=== PATIENT | male | born 1965 | race Caucasian/White ===

== ENCOUNTER 2021-04-24 04:51 | Inpatient (IN) ==
[2021-04-24] MEDS ORDERED: *HR* Heparin 5,000 UNIT/ML VIAL IVP ONE (05:19)
[2021-04-24] MEDS ORDERED: Aspirin 325 MG TABLET PO ONE (05:19)
[2021-04-24] MEDS ORDERED: *HR* Ticagrelor 90 MG TABLET PO ONE (05:19)
[2021-04-24] MEDS ORDERED: 0.9 % Sodium Chloride 1,000 ML ONE (05:24)
[2021-04-24] MEDS ORDERED: Morphine Sulfate 2 MG/ML SYRINGE IVP ONE (05:34)
[2021-04-24] MEDS ORDERED: Nitroglycerin 1,000 MCG/5 ML VIAL IV ONE (05:38)
[2021-04-24] MEDS ORDERED: Heparin 1,000 UNITS/500 mL 500 ML ONE ×2 (05:38→06:42)
[2021-04-24] MEDS ORDERED: *HR* Heparin 10,000 UNIT/10 ML VIAL ONE (05:38)
[2021-04-24] MEDS ORDERED: 0.9 % Sodium Chloride 2,000 ML ONE (05:38)
[2021-04-24] MEDS ORDERED: ISOVUE-370 200 ML INFUS..BTL ONE ×2 (05:38→06:15)
[2021-04-24] MEDS ORDERED: Ondansetron 4 MG/2 ML VIAL IVP ONE (05:42)
[2021-04-24 05:59] LABS: Basophils # 0.1 K/mcL (0.0-0.2); Basophils % 0.6 %; Eosinophils # 0.1 K/mcL (0.0-0.6); Eosinophils % 0.5 %; Hematocrit 46.6 % (37.5-50.1); Hemoglobin 16.1 g/dL (12.9-16.9); Immature Granulocytes % 0.5 % (0-4); Lymphocytes # 4.1 K/mcL (0.6-4.6); Lymphocytes % 22.8 %; Mean Corpuscular HGB Conc 34.5 g/dL (31.6-35.5); Mean Corpuscular Hemoglobin 30.3 pg (28.0-33.3); Mean Corpuscular Volume 87.8 fL (83.0-100.0); Mean Platelet Volume 11.4 fL (9.4-12.4); Monocytes # 0.8 K/mcL (0.0-1.3); Monocytes % 4.3 %; Neutrophils # 12.7 K/mcL (1.6-8.9); Platelet Count 241 K/mcL (140-400); Red Blood Count 5.31 M/mcL (4.19-5.50); Red Cell Distribution Width 14.4 % (11.5-14.5); Segmented Neutrophils % 71.3 %; White Blood Count 17.8 K/mcL (4.3-11.1)
[2021-04-24 06:03] LABS: Troponin I 0.85 ng/mL (< 0.04)
[2021-04-24] MEDS ORDERED: *HR* Midazolam HCl 2 MG/2 ML VIAL ONE (06:03)
[2021-04-24] MEDS ORDERED: *HR* FentaNYL (PF) 100 MCG/2 ML VIAL ONE (06:03)
[2021-04-24] MEDS ORDERED: *HR* Atropine Sulfate 1 MG/10 ML SYRINGE ONE (06:22)
[2021-04-24 06:24] LABS: Alanine Aminotransferase 16 Units/L (7-52); Albumin 4.7 g/dL (3.5-5.7); Alkaline Phosphatase 64 Units/L (34-104); Aspartate Amino Transferase 26 Units/L (13-39); BUN/Creatinine Ratio 17 (6-26); Bilirubin,Direct 0.2 mg/dL (0.0-0.2); Bilirubin,Indirect 0.8 mg/dL (0.0-1.0); Blood Urea Nitrogen 20 mg/dL (6-20); Calcium 10.1 mg/dL (8.6-10.3); Carbon Dioxide 24 mEq/L (23-29); Chloride 106 mEq/L (98-107); Globulin 4.5 g/dL (2.4-3.5); Glucose 114 mg/dL (70-105); Lipase 17 Units/L (11-82); Osmolality,Calculated 287 (280-300); Potassium 3.8 mEq/L (3.5-5.1); Sodium 137 mEq/L (136-145); Total Protein 9.2 g/dL (6.4-8.9); eGFR For African Americans > 60 (> 60); eGFR For Non-African Americans > 60 (> 60)
[2021-04-24] MEDS ORDERED: Nitroglycerin Spray 4.9 GM BOTTLE ONE (06:46)
[2021-04-24] MEDS ORDERED: Perflutren Lipid Microsphere 1.3 ML in 0.9 % Sodium Chloride 8.7 ML IVP PRN (07:10)
[2021-04-24] MEDS ORDERED: 0.9 % Sodium Chloride 1,000 ML IVC SCH (07:15)
[2021-04-24] MEDS: lisinopriL 10 MG TABLET PO SCH (08:31)
[2021-04-24] MEDS: carvediloL 6.25 MG TABLET PO SCH ×2 (08:31→17:41)
[2021-04-24] MEDS ORDERED: Furosemide 20 MG/2 ML VIAL IVP ONE (09:31)
[2021-04-24] MEDS ORDERED: Albuterol 2.5 MG/3 ML NEBULIZER IH PRN (10:05)
[2021-04-24] MEDS: 0.9 % Sodium Chloride 1,000 ML IVC SCH (10:15)
[2021-04-24] MEDS: Nicotine 21 MG PATCH.TD24 TD SCH (11:36)
[2021-04-24] MEDS: *HR* Heparin 5,000 UNIT/ML VIAL SQ SCH (17:43)
[2021-04-24] MEDS: *HR* Ticagrelor 90 MG TABLET PO SCH (20:18)
[2021-04-25] MEDS: *HR* Heparin 5,000 UNIT/ML VIAL SQ SCH ×2 (05:10→18:07)
[2021-04-25] MEDS: 0.9 % Sodium Chloride 1,000 ML IVC SCH ×2 (05:10→23:18)
[2021-04-25 05:40] LABS: Basophils # 0.1 K/mcL (0.0-0.2); Basophils % 0.5 %; Eosinophils # 0.1 K/mcL (0.0-0.6); Eosinophils % 1.2 %; Hematocrit 39.7 % (37.5-50.1); Immature Granulocytes % 0.3 % (0-4); Lymphocytes # 3.1 K/mcL (0.6-4.6); Lymphocytes % 27.1 %; Mean Corpuscular HGB Conc 34.5 g/dL (31.6-35.5); Mean Corpuscular Volume 87.1 fL (83.0-100.0); Mean Platelet Volume 11.8 fL (9.4-12.4); Monocytes # 0.6 K/mcL (0.0-1.3); Monocytes % 5.3 %; Neutrophils # 7.4 K/mcL (1.6-8.9); Platelet Count 177 K/mcL (140-400); Red Blood Count 4.56 M/mcL (4.19-5.50); Red Cell Distribution Width 14.6 % (11.5-14.5); Segmented Neutrophils % 65.6 %; White Blood Count 11.3 K/mcL (4.3-11.1)
[2021-04-25 05:44] LABS: Hemoglobin 13.7 g/dL (12.9-16.9)
[2021-04-25 05:58] LABS: BUN/Creatinine Ratio 16 (6-26); Blood Urea Nitrogen 18 mg/dL (6-20); Carbon Dioxide 22 mEq/L (23-29); Chloride 107 mEq/L (98-107); Glucose 96 mg/dL (70-105); Osmolality,Calculated 284 (280-300); Potassium 3.8 mEq/L (3.5-5.1); Sodium 136 mEq/L (136-145); eGFR For African Americans > 60 (> 60); eGFR For Non-African Americans > 60 (> 60)
[2021-04-25 06:04] LABS: Troponin I 67.74 ng/mL (< 0.04)
[2021-04-25] MEDS: lisinopriL 10 MG TABLET PO SCH (07:54)
[2021-04-25] MEDS: Aspirin 81 MG TAB.CHEW PO SCH (07:54)
[2021-04-25] MEDS: *HR* Ticagrelor 90 MG TABLET PO SCH ×2 (07:54→20:20)
[2021-04-25] MEDS: Nicotine 21 MG PATCH.TD24 TD SCH (07:54)
[2021-04-25] MEDS: carvediloL 6.25 MG TABLET PO SCH ×2 (07:54→18:08)
[2021-04-26] MEDS: *HR* Heparin 5,000 UNIT/ML VIAL SQ SCH ×2 (06:21→17:21)
[2021-04-26] MEDS: *HR* Ticagrelor 90 MG TABLET PO SCH ×2 (07:45→19:27)
[2021-04-26] MEDS: Aspirin 81 MG TAB.CHEW PO SCH (07:45)
[2021-04-26] MEDS: carvediloL 6.25 MG TABLET PO SCH ×2 (07:45→17:21)
[2021-04-26] MEDS: lisinopriL 10 MG TABLET PO SCH (07:45)
[2021-04-26] MEDS: Nicotine 21 MG PATCH.TD24 TD SCH (07:45)
[2021-04-26 08:11] LABS: Basophils # 0.1 K/mcL (0.0-0.2); Eosinophils # 0.2 K/mcL (0.0-0.6); Eosinophils % 2.3 %; Hemoglobin 14.2 g/dL (12.9-16.9); Immature Granulocytes % 0.4 % (0-4); Lymphocytes # 2.5 K/mcL (0.6-4.6); Lymphocytes % 30.5 %; Mean Corpuscular HGB Conc 33.8 g/dL (31.6-35.5); Mean Corpuscular Hemoglobin 29.5 pg (28.0-33.3); Mean Corpuscular Volume 87.3 fL (83.0-100.0); Mean Platelet Volume 11.5 fL (9.4-12.4); Monocytes # 0.4 K/mcL (0.0-1.3); Monocytes % 4.7 %; Neutrophils # 5.1 K/mcL (1.6-8.9); Platelet Count 179 K/mcL (140-400); Red Blood Count 4.81 M/mcL (4.19-5.50); Red Cell Distribution Width 14.3 % (11.5-14.5); Segmented Neutrophils % 61.1 %; White Blood Count 8.3 K/mcL (4.3-11.1)
[2021-04-26 08:30] LABS: BUN/Creatinine Ratio 18 (6-26); Blood Urea Nitrogen 20 mg/dL (6-20); Calcium 9.5 mg/dL (8.6-10.3); Carbon Dioxide 23 mEq/L (23-29); Chloride 108 mEq/L (98-107); Glucose 121 mg/dL (70-105); Osmolality,Calculated 286 (280-300); Potassium 3.8 mEq/L (3.5-5.1); Sodium 136 mEq/L (136-145); eGFR For African Americans > 60 (> 60); eGFR For Non-African Americans > 60 (> 60)
[2021-04-26] MEDS: 0.9 % Sodium Chloride 1,000 ML IVC SCH (19:27)
[2021-04-27 01:54] LABS: Basophils # 0.1 K/mcL (0.0-0.2); Eosinophils # 0.3 K/mcL (0.0-0.6); Eosinophils % 3.5 %; Hematocrit 40.1 % (37.5-50.1); Hemoglobin 13.7 g/dL (12.9-16.9); Immature Granulocytes % 0.3 % (0-4); Lymphocytes # 2.8 K/mcL (0.6-4.6); Lymphocytes % 35.2 %; Mean Corpuscular HGB Conc 34.2 g/dL (31.6-35.5); Mean Corpuscular Hemoglobin 29.8 pg (28.0-33.3); Mean Corpuscular Volume 87.2 fL (83.0-100.0); Mean Platelet Volume 11.8 fL (9.4-12.4); Monocytes # 0.4 K/mcL (0.0-1.3); Monocytes % 5.6 %; Neutrophils # 4.3 K/mcL (1.6-8.9); Platelet Count 178 K/mcL (140-400); Red Cell Distribution Width 14.3 % (11.5-14.5); Segmented Neutrophils % 54.4 %; White Blood Count 7.9 K/mcL (4.3-11.1)
[2021-04-27 02:17] LABS: BUN/Creatinine Ratio 19 (6-26); Blood Urea Nitrogen 22 mg/dL (6-20); Calcium 9.3 mg/dL (8.6-10.3); Carbon Dioxide 22 mEq/L (23-29); Chloride 108 mEq/L (98-107); Glucose 140 mg/dL (70-105); Osmolality,Calculated 288 (280-300); Potassium 3.6 mEq/L (3.5-5.1); Sodium 136 mEq/L (136-145); eGFR For African Americans > 60 (> 60); eGFR For Non-African Americans > 60 (> 60)
[2021-04-27] MEDS: *HR* Heparin 5,000 UNIT/ML VIAL SQ SCH ×2 (06:09→10:42)
[2021-04-27] MEDS: *HR* Ticagrelor 90 MG TABLET PO SCH (07:48)
[2021-04-27] MEDS: Aspirin 81 MG TAB.CHEW PO SCH (07:48)
[2021-04-27] MEDS: carvediloL 6.25 MG TABLET PO SCH (07:48)
[2021-04-27] MEDS: lisinopriL 10 MG TABLET PO SCH (07:53)
[2021-04-27] MEDS: Nicotine 21 MG PATCH.TD24 TD SCH (07:53)
[2021-04-27] MEDS ORDERED: lisinopriL 10 MG TABLET PO ONE (08:23)
[2021-04-27] MEDS ORDERED: Nitroglycerin 1,000 MCG/5 ML VIAL IV ONE (11:45)
[2021-04-27] MEDS ORDERED: 0.9 % Sodium Chloride 2,000 ML ONE (11:45)
[2021-04-27] MEDS ORDERED: *HR* Heparin 10,000 UNIT/10 ML VIAL ONE (11:45)
[2021-04-27] MEDS ORDERED: Heparin 1,000 UNITS/500 mL 500 ML ONE (11:45)
[2021-04-27] MEDS ORDERED: ISOVUE-370 200 ML INFUS..BTL ONE (11:45)
[2021-04-27] MEDS ORDERED: *HR* Midazolam HCl 2 MG/2 ML VIAL ONE (12:10)
[2021-04-27] MEDS ORDERED: Tirofiban 12.5 MG/250ML 0 MG/0 ML BAG ONE (12:11)
[2021-04-27] MEDS ORDERED: *HR* FentaNYL (PF) 100 MCG/2 ML VIAL ONE (12:11)
[2021-04-27 14:37] VITALS: TEMP 98.3
[2021-04-27 15:35] VITALS: BP 165/97; PULSE 69; O2SAT 92
[2021-04-28] MEDS ORDERED: lisinopriL 20 MG TABLET PO SCH (09:00)
== END 2021-04-27 17:48 | disposition home or self-care (01) | DRG 246 ==
LOC: EMEROOARM 04:51 → 2NNU 06:20
PROVIDERS: ADMIT Internal Medicine Cardiovascular Disease; ATTEND Internal Medicine Cardiovascular Disease